=== PATIENT | male | born 1960 | race African-American/Black ===

== ENCOUNTER 2023-11-26 17:18 | Emergency (ER) | payer MEDICARE, OTHER, SELFPAY ==
--- NOTE | 2023-11-26 | ECG_ITS ---
Test Reason : QTC Blood Pressure : / mmHG Vent. Rate : 073 BPM Atrial Rate : 073 BPM P-R Int : 170 ms QRS Dur : 094 ms QT Int : 388 ms P-R-T Axes : 049 -01 022 degrees QTc Int : 427 ms Normal sinus rhythm Nonspecific T wave abnormality Abnormal ECG No previous ECGs available Referred By: Donna Miller Electronically Signed By:NICK GONZALEZ MD
[2023-11-26 17:21] VITALS: BP 160/100; BP 177/119; PULSE 82; PULSE 84; RESP 20; TEMP 36.5; O2SAT 97; O2SAT 99; BMI 30.7
--- NOTE | 2023-11-26 17:31 | PC.NURSE ---
pt biba calm and cooperative. denies SI/ HI to this RN at time of arrival. pt ambulates with walker report bilat knee weakness baseline
--- NOTE | 2023-11-26 17:34 | ED_ITS ---
HPI - General Adult General Chief complaint: Psychiatric Symptoms Stated complaint: SI Time Seen by Provider: 11/26/23 17:34 Source: patient and EMS Mode of arrival: EMS Limitations: no limitations History of Present Illness HPI narrative: Patient is a 63 year old assigned male at with a history of HTN and DM presenting to the emergency department today with increased depression. Patient states that he was recently evicted from his home and is squatting there. States that he has been much more depressed lately and has had some thoughts of suicide but denies any right now. Patient denies any dizziness, lightheadedness, abdominal pain, nausea, vomiting, fever, chills, blurry vision, double vision, loss of vision, chest pain, difficulty breathing, shortness of breath, back pain, night sweats, pain with urination, increased urinary frequency, increased urinary urgency, blood in his urine or stool, syncope or a near syncopal episode, recent trauma or falls, bowel incontinence, bladder incontinence, bowel retention, bladder retention, or any other complaints at this time. Relieving factors: none Exacerbating factors: none Associated symptoms: denies other symptoms Treatments prior to arrival: none Related Data Allergies Allergy/AdvReac Type Severity Reaction Status Date / Time No Known Allergies Allergy Verified 11/26/23 17:30 Review of Systems Constitutional: Constitutional: Reports no additional constitutional complaints, Denies chills, Denies fever(s) and Denies night sweats Eyes: Eyes: Reports no additional eye complaints, Denies blurry vision, Denies change in vision, Denies diplopia, Denies eye discharge, Denies loss of vision and Denies eye pain ENT: Denies dizziness Cardiovascular: Cardiovascular: Reports no additional cardiovascular complaints, Denies chest pain, Denies lightheadedness, Denies Loss of Consciousness and Denies dyspnea Respiratory: Respiratory: Reports no additional respiratory complaints and Denies dyspnea Gastrointestinal: Gastrointestinal: Reports no additional gastrointestinal complaints, Denies abdominal pain, Denies melena, Denies hematochezia, Denies change in bowel habits and Denies change in stool character Genitourinary: Genitourinary: Reports no additional male genitourinary complaints, Denies hematuria, Denies oliguria, Denies difficulty urinating, Denies dysuria, Denies urinary frequency, Denies urinary hesitancy, Denies urinary incontinence and Denies urinary urgency Musculoskeletal: Musculoskeletal: Reports no additional musculoskeletal complaints, Denies numbness and Denies tingling Neurologic: Denies dizziness, Denies loss of vision, Denies numbness and Denies tingling Psychiatric: Psychiatric: Reports no additional psychiatric complaints and Reports depression Endocrine: Endocrine: Reports no additional endocrine complaints Hematologic/Lymphatic: Hematologic/Lymphatic: Reports no additional hematologic/lymphatic complaints Allergic/Immunologic: Allergic/Immunologic: Reports no additional allergic/immunologic complaints [facility] Past Medical History Attestation statement: The following information was validated with the patient. Source: old records reviewed and nursing notes reviewed Social History Social History Smoked in Last 30 Days: No Use of substances other than those prescribed or required for medical reasons: No Advance Directives: No Advance Directives Information Provided: No Do you have a plan to hurt others: No Plan Physical Exam ED Vital Signs: Vital Signs - 24 hr 11/26/23 17:21 Temperature 97.7 F Pulse Rate 84 Respiratory Rate 20 Blood Pressure 177/119 H Pulse Oximetry 97 Oxygen Delivery Method Room Air BMI result Body Mass Index 30.7 Const General: cooperative, no acute distress, alert and awake Nutritional Appearance: well nourished Orientation/consciousness: patient oriented x3 Limitations: no limitations HENMT Head: Yes normal to inspection and Yes atraumatic Ears: hearing grossly normal bilaterally and external ears normal General nose exam: Normal external nose present, no nasal discharge noted and no epistaxis Face and sinus: Yes normal facial exam, No abrasion and No laceration Mouth: Normal oral and palatal mucosa present, no drooling and no muffled voice Eyes General: appearance normal, both eyes and all related structures Periorbital: periorbital findings normal Eyelids: Yes eyelids normal Conjunctivae: conjunctivae normal Pupils: Equal, round and reactive pupils present EOM: EOMs intact bilaterally Neck Neck: Yes normal visual inspection, Yes full ROM and Yes no lymphadenopathy Chest Chest palpation & inspection: normal inspection of the chest Resp Effort & Inspection: normal respiratory effort and able to speak in complete sentences GI Inspection: Yes normal to inspection Neuro General: patient oriented x3 and moves all extremities Cranial nerves: Yes Equal, round and reactive pupils present Cognition (Neuro): normal cognition Motor exam (neuro): 5/5 motor strength present throughout Sensory Exam: Normal double simultaneous stimulation for sensation Coordination: [id number] test normal Extrem General: Yes normal to inspection, Yes full ROM and Yes capillary refill normal Psych Appearance: grossly normal Mental Status: mental status grossly normal Affect: Sad affect present Attitude: cooperative Medical Decision Making Medical Decision Making [facility] Narrative: Patient is a 63 year old assigned male at with a history of HTN and DM presenting to the emergency department today with increased depression. Patient's physical exam was unremarkable. Patient's blood work is pending. Patient's urine showed no acute process. I explained my physical exam findings as well as all test results to the patient. I answered all questions asked by the patient. Patient did not take his medications today and does not know the dose. Given patient's current HTN, will order 10mg of Amlodipine with request for pharmacy to do a med rec. Patient evaluated by CARE team who recommended he be an in patient bed search. Patient's labs are still pending at this time. Will have evening COLLEEN review labs. Differential Diagnosis Differential Diagnoses: The differential diagnosis associated with the presentation includes Depression Suicidal ideation Admission/Observation Consideration of admission/observation: Escalation of care including admissio n/observation considered Patient is an inpatient bed search at this time. Consult Healthcare Provider Management of the patient was discussed with: Payroll Accounting Specialist (spoke to the CARE team as noted in the MDM Rationale portion of this note) Lab Data [facility] Lab Attestation statement: I reviewed the patient's lab results. My interpretation of these results are in the MDM Rationale portion of this note. Labs: Lab Results 11/26/23 11/26/23 Range/Units 17:42 18:29 POC Glucose 349 H (60-115) mg/dL Urine Color Yellow Urine Appearance Clear Urine pH 6.0 (5.0-9.0) Ur Specific [place] >= 1.030 H (1.005-1.025) Urine Protein 100 (2+) H (Neg-Trace) mg/dL Urine Glucose (UA) >=1000 H (Negative) mg/dL Urine Ketones Negative (Negative) mg/dL Urine Blood Negative (Negative) Urine Nitrite Negative (Negative) Ur Leukocyte Esterase Negative (Negative) Urine RBC 0-2 (0-2) /HPF Urine WBC 0-5 (0-5) /HPF Ur Squamous Epith Cells 3-5 (0-2) /HPF Urine Bacteria None Seen (None Seen) Hyaline Casts 0-2 (0-2) /LPF Urine Opiates Screen Not Detected (Not Detect) Ur Buprenorphine Scrn Not Detected (Not Detect) ng/mL Ur Oxycodone Screen Not Detected (Not Detect) ng/mL Urine Methadone Screen Not Detected (Not Detect) ng/mL Urine Fentanyl Screen POSITIVE H (Not Detect) Ur Barbiturates Screen Not Detected (Not Detect) Ur Phencyclidine Scrn Not Detected (Not Detect) Ur Amphetamines Screen Not Detected (Not Detect) U Benzodiazepines Scrn Not Detected (Not Detect) Urine Cocaine Screen POSITIVE H (Not Detect) U Marijuana (THC) Screen Not Detected (Not Detect) COVID-19 (JOSELIN) Negative (Negative) COVID-19 Clin Com See Note Independent Historian Clinical information obtained from an independent historian. History obtained from or confirmed by: EMS (EMS provided additional history and confirmed the history provided by the patient.) Chronic Conditions Patient?s care impacted by: Diabetes and Hypertension Discharge Plan Discharge Clinical Impression: Depression Patient Disposition: Still a Patient Interventions: Snyder-Suicide Risk Severity Scale Last Done: 11/26/23 18:18 Print Language: Czech
[2023-11-26 17:53] LABS: Appearance Urine Clear; Color Urine Yellow; Glucose Urine UA >=1000 mg/dL (Negative); Leukocyte Esterase Urine Negative (Negative); Nitrite Urine Negative (Negative); Specific Gravity - Urine >= 1.030 (1.005-1.025); UMIC TRIGGER UA YES; UMIC TRIGGER UACC YES; Urine Blood Negative (Negative); Urine Ketones Negative (Negative); Urine Protein 100 (2+) mg/dL (Neg-Trace)
[2023-11-26 17:56] LABS: Bacteria Urine None Seen (None Seen); Hyaline Casts Urine 0-2 /LPF (0-2); RBC Urine 0-2 /HPF (0-2); WBC Urine 0-5 /HPF (0-5)
[2023-11-26 18:04] LABS: Amphetamine Screen Urine Not Detected (Not Detect); Barbiturates, Urine Not Detected (Not Detect); Benzodiazepines Screen Urine Not Detected (Not Detect); Buprenorphine Scr Not Detected (Not Detect); Cannabinoid Screen Urine Not Detected (Not Detect); Cocaine Screen Urine POSITIVE (Not Detect); Fentanyl, urine POSITIVE (Not Detect); Methadone Screen, Urine Not Detected (Not Detect); Opiate Screen Urine Not Detected (Not Detect); Oxycodone Screen Urine Not Detected (Not Detect); Phencyclidine Screen Urine Not Detected (Not Detect)
[2023-11-26 18:33] LABS: Glucose, Whole Blood 349 mg/dL (60-115)
--- NOTE | 2023-11-26 18:42 | PC.NURSE ---
this rn made Vicky RODRIGUEZ aware of POC 349 and BP 177/119. pt denies taking meds for Dm and states takes amlodipine, losartan, and hctz for BP did not take today. pt does not know med dose/ frequency
[2023-11-26 18:51] LABS: COVID-19 Test Negative (Negative); IDNOW Serial# 08D9AD1C
--- NOTE | 2023-11-26 19:37 | PHA.MEDREC ---
Pharmacy Consult ? Medication Reconciliation Pharmacy has completed the medication reconciliation. Received list from the [place]. Maurizio KrugerD
--- NOTE | 2023-11-26 20:14 | MHC.CARE ---
Pt is a [place] bed[place]
[2023-11-26 20:49] VITALS: BP 177/119
[2023-11-26] MEDS: amLODIPine Besylate 10 MG TABLET PO (20:49)
[2023-11-26 21:47] LABS: MANUAL DIFF FLAG NO
[2023-11-26 21:57] LABS: Basophils Absolute Auto 0.1 X10*3/uL (0.0-0.2); Basophils Percent Auto 0.5 % (0-2); Eosinophils Absolute Auto 0.1 X10*3/uL (0.0-0.4); Eosinophils Percent Auto 1.1 % (0-4); Hematocrit 45.2 % (42.0-52.0); Hemoglobin 15.1 g/dl (14.0-18.0); Imm Gran Abs Auto 0.03 X10*3/uL (0.00-0.03); Imm Gran Pct Auto 0.3 % (0.0-0.4); Lymphocytes Percent Auto 20.8 % (20-40); Mean Corpuscular HGB Conc 33.4 g/dl (31.0-36.0); Mean Corpuscular Hemoglobin 25.8 pg (27.0-33.0); Mean Corpuscular Volume 77.3 fL (80.0-98.0); Mean Platelet Volume 8.9 fL (9.4-12.4); Monocytes Absolute Auto 0.5 X10*3/uL (0.1-1.2); Monocytes Percent Auto 5.4 % (2-11); Neutrophils Percent Auto 71.9 % (45-73); Platelet Count 389 X10*3/uL (160-400); Red Blood Count 5.85 X10*6/uL (4.60-5.80); White Blood Count 9.8 X10*3/uL (4.8-10.8)
[2023-11-26 22:04] LABS: Ethanol < 10 mg/dL
[2023-11-26 22:08] LABS: Salicylate < 5.0 mg/dL (15-30)
[2023-11-26 22:12] LABS: Alanine Aminotransferase 12 U/L (0-40); Albumin Level 3.6 g/dL (3.5-5.0); Alkaline Phosphatase 110 U/L (39-117); Anion Gap 13 (12-20); Aspartate Amino Transferase 10 U/L (5-37); Bilirubin Total 0.3 mg/dL (0.0-1.0); Blood Urea Nitrogen 15 mg/dL (9-16); Calcium 8.9 mg/dL (8.4-10.2); Carbon Dioxide 26 mmol/L (22-29); Chloride 97 mmol/L (96-108); Creatinine Clr Calc Pharmacy 84.5; Estimated Glomerular Filt Rate > 60; Glucose Random 351 mg/dL (60-115); Potassium 3.9 mmol/L (3.3-5.1); Sodium 132 mmol/L (135-145); Total Protein 8.1 g/dL (6.5-8.0)
[2023-11-26] MEDS: metFORMIN HCl 850 MG TABLET PO (22:12)
[2023-11-26 22:25] VITALS: BP 178/110; PULSE 74; RESP 17; TEMP 36.6; O2SAT 99
[2023-11-26 22:31] LABS: Delay - Chemistry DELAY
[2023-11-26 22:37] LABS: Influenza A PCR NEGATIVE (Negative); Influenza B PCR NEGATIVE (Negative); Resp Syncy Virus RNA Qual PCR NEGATIVE (Negative); SARS COV2 PCR INHOUSE NEGATIVE (Negative)
[2023-11-27] VITALS (7 sets, daily range): BP systolic 114–150; BP diastolic 84–114; PULSE 90–105; RESP 16–18; TEMP 36.7–36.9; O2SAT 96–99
[2023-11-27 00:01] LABS: Acetaminophen LAB < 3 mcg/mL (<30)
--- NOTE | 2023-11-27 05:47 | PC.NURSE ---
Patient slept most part of the night, no distress observed/reported, denied SI/HI/AVH, [facility]'s [facility], medical record faxed to [place] [facility]/fax confirmation in patient's chart, patient is hypertensive 150/114 complaint with antihypertensive medication, behavior in good control, ambulates with walker independently, will continue to monitor
--- NOTE | 2023-11-27 07:01 | PC.NURSE ---
This RN is assumed care at 0700AM. Pt noted to be sleeping in bed, observed on camera. Plan for pt is sect 12 inpatient [place] bed search, increased depression & SI. Pt ambulates to bathroom with walker.
[2023-11-27] MEDS: metFORMIN HCl 850 MG TABLET PO ×3 (07:50→16:07)
[2023-11-27 08:52] LABS: Glucose, Whole Blood 423 mg/dL (60-115)
[2023-11-27] MEDS: NaPROXEN 500 MG TABLET PO (08:55)
[2023-11-27] MEDS: Aspirin 81 MG TAB.CHEW PO (08:56)
[2023-11-27] MEDS: amLODIPine Besylate 10 MG TABLET PO (08:56)
[2023-11-27] MEDS: Atorvastatin Calcium 40 MG TABLET PO (08:56)
[2023-11-27] MEDS: Losartan Potassium 50 MG TABLET 100 MG PO (08:57)
[2023-11-27] MEDS: Insulin Glargine,Hum.rec.anlog 100 UNIT/ML 10 ML VIAL 50 UNIT SUBCUT (08:57)
--- NOTE | 2023-11-27 14:00 | PC.NURSE ---
Protective services worker meeting with pt at this time.
[2023-11-27 15:05] LABS: Glucose, Whole Blood 324 mg/dL (60-115)
--- NOTE | 2023-11-27 15:55 | MHC.CARE ---
PT signed JOSETTE for [facility], PS worker is Joan Farooq [phone]
[2023-11-27] MEDS: Insulin Glargine,Hum.rec.anlog 100 UNIT/ML 10 ML VIAL 10 UNIT SUBCUT (16:07)
[2023-11-27 16:37] LABS: Glucose, Whole Blood 276 mg/dL (60-115)
[2023-11-27 17:07] LABS: Glucose, Whole Blood 295 mg/dL (60-115)
[2023-11-27] MEDS: Insulin Lispro 100 UNIT/ML 3 ML VIAL 10 UNIT SUBCUT (17:49)
--- NOTE | 2023-11-27 18:17 | PC.NURSE ---
Pt compliant to all meds today. Denies any pain or complaints. Denies any SI or HI at this time. RN continuing to monitor BGL.
[2023-11-27 18:18] LABS: Glucose, Whole Blood 237 mg/dL (60-115)
--- NOTE | 2023-11-27 18:24 | PC.NURSE ---
Call from [facility], they have accepted pt, Dr. Gregg Rodriguez. Alert ambulance to pear picker pt around 7pm.
== END 2023-11-27 18:50 | disposition still patient (30) ==
PROVIDERS: Physician Assistant Medical; Emergency Provider Emergency Medicine; PCP Family Medicine
DX: F32.A Depression, unspecified (principal); E11.9 Type 2 diabetes mellitus without complications; I10 Essential (primary) hypertension; Z11.52 Encounter for screening for COVID-19
CPT/HCPCS: 0241U; 36415; 80053; 80143; 80179; 80307; 81001; 82947; 85025; 87635; 93005; 99285; S9485

== ENCOUNTER → 2023-11-26 21:18 | Outpatient (BNV) | payer MEDICARE, SELFPAY | PROVIDERS: Emergency Provider Emergency Medicine; PCP Family Medicine; Visit Provider Internal Medicine Cardiovascular Disease | DX: R94.31 Abnormal electrocardiogram [ECG] [EKG] (principal) | CPT/HCPCS: 93010 ==